=== PATIENT | male | born 1990 | race Caucasian/White ===

== ENCOUNTER 2016-09-25 19:26 | Emergency (ER) | payer SELFPAY ==
[~2016-09-25] VITALS: Ht 180.3 cm; Wt 56.8 kg
[~2016-09-25 19:26] MED LIST: CEPHALEXIN500 M1 PO; CHANTIX 1MG1 MG PO; CHANTIX STARTER1 TAB PO; DOXYCYCLINE 10100 MG PO; LAMISIL250 M1 PO; NASONEX SPRAY17 GM NS; NORCO 325 MG-51 TAB PO; NORCO 325 MG-7.1 TAB PO
[2016-09-25 19:30] VITALS: BP 164/93; PULSE 78; TEMP 98.9
== END 2016-09-25 20:43 | disposition home or self-care (01) ==
LOC: COL.ER 19:26
DX: K08.89 Other specified disorders of teeth and supporting structures (principal); F17.210 Nicotine dependence, cigarettes, uncomplicated

== ENCOUNTER 2016-12-11 04:20 | Emergency (ER) | payer SELFPAY ==
[~2016-12-11] VITALS: Ht 180.3 cm; Wt 56.8 kg
[2016-12-11 04:23] VITALS: TEMP 98.2
[2016-12-11 05:09] LABS: BASO % 0.5 % (0.0-2.0); EOS # 0.3 (0.0-0.7); EOS % 3.3 % (0-4.0); GRAN # 4.2 (1.4-6.5); GRAN % 52.3 % (42.2-75.2); HEMATOCRIT 39.8 % (42.0-52.0); HEMOGLOBIN 13.8 g/dl (13.5-18.0); LYMPH # 2.9 (1.2-3.4); LYMPH % 35.7 % (20.0-51.0); MEAN CELL VOLUME 87 fl (80.0-100.0); MEAN CORPUSCULAR HEMOGLOBIN 30 pg (27.0-31.0); MEAN CORPUSCULAR HGB CONC 35 g/dl (33.0-37.0); MEAN PLATELET VOLUME 10.1 fl (7.4-10.4); MONO # 0.7 (0.1-0.6); MONO % 8.1 % (1.7-9.3); PLATELET COUNT 194 K/mm3 (130-400); RED BLOOD COUNT 4.59 M/mm3 (4.20-5.60); REDCELL DISTRIBUTION WIDTH-CV 13.3 % (11.5-14.5); WHITE BLOOD COUNT 8.1 K/mm3 (4.8-10.8)
[2016-12-11 05:18] LABS: ALANINE AMINOTRANSFERASE 24 U/L (21-72); ALBUMIN 4.1 gm/dL (3.5-5.0); ALKALINE PHOSPHATASE 64 U/L (50-136); ANION GAP 13 mmol/L (7-16); BILIRUBIN,TOTAL 0.5 mg/dL (0.0-1.0); BLOOD UREA NITROGEN 13 mg/dL (9-20); CALCIUM 9.1 mg/dL (8.4-10.2); CARBON DIOXIDE 24 mmol/L (22-30); CHLORIDE 103 mmol/L (98-107); CREATININE, serum 0.82 mg/dL (0.66-1.25); GLUCOSE 97 mg/dL (74-106); POTASSIUM 3.9 mmol/L (3.4-5.0); SODIUM 140 mmol/L (137-145); TOTAL PROTEIN 6.8 gm/dL (6.4-8.2)
[2016-12-11 05:22] LABS: ACETAMINOPHEN < 10 ug/mL (10-30)
[2016-12-11 05:30] LABS: PROTHROMBIN TIME 11.6 SECONDS (9.7-12.8)
[2016-12-11] MEDS ORDERED: CLEOCIN HC150 MG/CAP PO (07:11)
[2016-12-11] MEDS ORDERED: PERCOCET 325 MG1 TA2 PO (07:11)
[2016-12-11 08:06] VITALS: BP 127/78; PULSE 70
== END 2016-12-11 08:12 | disposition home or self-care (01) ==
LOC: COL.ER 04:20
PROVIDERS: Emergency Medicine
DX: K02.9 Dental caries, unspecified (principal); R68.84 Jaw pain; F17.200 Nicotine dependence, unspecified, uncomplicated
CPT/HCPCS: J1170; J1885; J2405

== ENCOUNTER 2016-12-11 11:58 | Emergency (ER) | payer SELFPAY ==
[~2016-12-11] VITALS: Ht 180.3 cm; Wt 56.8 kg
[~2016-12-11 11:58] MED LIST changes: +CLEOCIN HC150 MG/CAP PO; +PERCOCET 325 MG1 TA2 PO
[2016-12-11 12:01] VITALS: BP 154/87; PULSE 67; TEMP 98.1
== END 2016-12-11 12:53 | disposition home or self-care (01) ==
LOC: COL.ER 11:58
DX: K02.9 Dental caries, unspecified (principal); R68.84 Jaw pain; F17.200 Nicotine dependence, unspecified, uncomplicated

== ENCOUNTER 2018-04-27 14:52 | Emergency (ER) | payer SELFPAY ==
[~2018-04-27] VITALS: Ht 180.3 cm; Wt 56.8 kg
[2018-04-27 14:56] VITALS: BP 137/87
[2018-04-27] MEDS ORDERED: LEVAQUIN 5500 MG/TA1 PO (15:24)
[2018-04-27] MEDS ORDERED: PERIDEX (CHLOR480 ML MM (15:24)
[2018-04-27 15:42] VITALS: PULSE 78; TEMP 98.5
== END 2018-04-27 15:44 | disposition home or self-care (01) ==
LOC: COL.ER 14:52
DX: H66.91 Otitis media, unspecified, right ear (principal); J01.90 Acute sinusitis, unspecified; K02.9 Dental caries, unspecified; F17.210 Nicotine dependence, cigarettes, uncomplicated; Z88.0 Allergy status to penicillin

== ENCOUNTER 2019-01-01 19:53 | Emergency (ER) | payer SELFPAY ==
[~2019-01-01] VITALS: Ht 180.3 cm; Wt 56.8 kg
[~2019-01-01 19:53] MED LIST changes: +LEVAQUIN 5500 MG/TA1 PO; +PERIDEX (CHLOR480 ML MM
[2019-01-01 19:56] VITALS: BP 101/57; PULSE 89; TEMP 96.9
[2019-01-01] MEDS ORDERED: ATARAX 10MG10 MG/TAB PO (20:11)
[2019-01-01] MEDS ORDERED: ADDERALL5 MG PO (20:11)
[2019-01-01] MEDS ORDERED: DOXYCYCLINE 10100 MG PO (20:55)
== END 2019-01-01 21:28 | disposition home or self-care (01) ==
LOC: COL.ER 19:53
DX: S61.238A Puncture wound without foreign body of other finger without damage to nail, initial encounter (principal); W29.8XXA Contact with other powered hand tools and household machinery, initial encounter; Y92.009 Unspecified place in unspecified non-institutional (private) residence as the place of occurrence of the external cause

== ENCOUNTER 2019-08-04 16:41 | Emergency (ER) | payer SELFPAY ==
[~2019-08-04 16:41] MED LIST changes: +ADDERALL5 MG PO; +ATARAX 10MG10 MG/TAB PO
== END 2019-08-04 17:10 | disposition left against medical advice (07) ==
LOC: COL.ER 16:41
DX: Z72.9 Problem related to lifestyle, unspecified (principal)

== ENCOUNTER 2019-08-25 14:58 | Emergency (ER) | payer SELFPAY ==
[~2019-08-25] VITALS: Ht 180.3 cm; Wt 54.5 kg
[2019-08-25 15:08] VITALS: BP 131/89; PULSE 85; TEMP 98
== END 2019-08-25 19:49 | disposition left against medical advice (07) ==
LOC: COL.ER 14:58
DX: R42 Dizziness and giddiness (principal); R11.0 Nausea